=== PATIENT | male | born 1945 | race African-American/Black ===

== ENCOUNTER 2018-09-02 14:33 | Inpatient (IN) ==
[2018-09-02] MEDS ORDERED: ENOXAPARIN 100 MG/ML SYRINGE SUBCUT STA (15:08)
[2018-09-02] MEDS ORDERED: ALUM/MAG/SIMETH/LIDO VISC 1:1 30 ML BOTTLE PO STA (15:08)
[2018-09-02 15:14] LABS: Basophils % 0.1 % (0.0-0.8); Eosinophils % 0.1 % (0.00-10.9); Hematocrit 43.9 VOL% (42.0-52.0); Hemoglobin 14.4 GM/DL (14.0-18.0); Immature Granulocytes % 0.3 %; Immature Granulocytes Absolute 0.03 #; Lymphocytes # 0.7 10*3/uL (1.4-4.0); Mean Corpuscular HGB Conc 32.8 GM/DL (32-36); Mean Corpuscular Hemoglobin 29 PG (27-34); Mean Corpuscular Volume 88.9 FL (87-102); Mean Platelet Volume 10.5 FL (9.6-12.0); Monocytes # 1.1 10*3/uL (0.11-0.8); Monocytes % 11.2 % (1.7-12.7); Neutrophils % 81.3 % (38.7-73.9); Platelet Count 120 T/CUMM (130-400); Red Blood Count 4.94 MC/CUMM (3.8-5.5); Red Cell Distribution Width 13.3 % (9.3-17.3); White Blood Count 9.9 T/CUMM (4-12)
[2018-09-02 15:30] LABS: Albumin 3.9 G/DL (3.4-5.0); Bilirubin,Total 1.3 MG/DL (0.2-1.0); Calcium 9.1 MG/DL (8.5-10.1); Osmolality,Calculated 279.5 MOS/KG (273-304); Potassium 4.1 MMOL/L (3.5-5.1); Total Protein 6.7 G/DL (6.4-8.3)
[2018-09-02] MEDS ORDERED: ONDANSETRON 4 MG/2 ML VIAL IV PRN (16:57)
[2018-09-02] MEDS ORDERED: MAGNESIUM SULF RIDER 2 GM in PREMIX 1 EACH IV PRN (16:57)
[2018-09-02] MEDS ORDERED: POTASSIUM CHLORIDE 20 MEQ TABLET PO PRN (16:57)
[2018-09-02] MEDS ORDERED: ALBUTEROL/IPRATROPIUM 3 ML NEB RESP TX PRN (19:15)
[2018-09-02] MEDS: SODIUM CHLORIDE 0.45% 1,000 ML IV SCH (19:17)
[2018-09-02] MEDS ORDERED: ALUM/MAG/SIMETH/LIDO VISC 1:1 30 ML BOTTLE PO ONE (19:20)
[2018-09-02] MEDS: METOPROLOL TARTRATE 50 MG TABLET PO SCH (20:24)
[2018-09-02] MEDS: MORPHINE 4 MG/1 ML VIAL IV PRN (20:24)
[2018-09-03] MEDS: SODIUM CHLORIDE 0.45% 1,000 ML IV SCH ×2 (04:12→16:55)
[2018-09-03] MEDS: MOMETASONE/FORMOTEROL 100-5 INHALER 8.8 GM INH SCH ×3 (04:14→20:15)
[2018-09-03 05:11] LABS: Basophils % 0.2 % (0.0-0.8); Hematocrit 45.7 VOL% (42.0-52.0); Immature Granulocytes % 0.6 %; Immature Granulocytes Absolute 0.07 #; Lymphocytes # 0.7 10*3/uL (1.4-4.0); Lymphocytes % 5.3 % (21.2-54.2); Mean Corpuscular HGB Conc 32.8 GM/DL (32-36); Mean Corpuscular Hemoglobin 29 PG (27-34); Mean Corpuscular Volume 89.3 FL (87-102); Monocytes # 1.5 10*3/uL (0.11-0.8); Monocytes % 12.4 % (1.7-12.7); Neutrophils % 81.5 % (38.7-73.9); Platelet Count 127 T/CUMM (130-400); Red Blood Count 5.12 MC/CUMM (3.8-5.5); Red Cell Distribution Width 13.2 % (9.3-17.3); White Blood Count 12.3 T/CUMM (4-12)
[2018-09-03 05:37] LABS: Calcium 8.5 MG/DL (8.5-10.1); Osmolality,Calculated 282.5 MOS/KG (273-304); Potassium 4.4 MMOL/L (3.5-5.1); Risk Ratio 1.77; Thyroid Stimulating Hormone 0.167 uIU/ml (0.358-3.74); VLDL CHOLESTEROL 7.8 MG/DL
[2018-09-03 06:43] LABS: Apearance,Urine CLEAR (Clear); Bilirubin,Urine Negative (Negative); Blood, Urine Moderate mg/dL (Negative); Glucose,Urine (UA) Negative (Negative); Ketones,Urine 5 mg/dL (Negative); Mucus,Urine Occasional /LPF (Occasional); Nitrite,Urine Negative (Negative); Protein,Urine 30 MG/DL; RBC,Urine 21 /HPF (0-4); Urine Color Amber (Yellow); WBC,Urine 1 /HPF (0-6)
[2018-09-03] MEDS ORDERED: ENOXAPARIN 80 MG/0.8 ML SYRINGE SUBCUT SCH (07:00)
[2018-09-03] MEDS: MORPHINE 4 MG/1 ML VIAL IV PRN ×3 (07:31→20:16)
[2018-09-03] MEDS ORDERED: ASPIRIN EC 325 MG TABLET PO SCH (09:00)
[2018-09-03] MEDS ORDERED: PANTOPRAZOLE 40 MG TABLET PO SCH (09:00)
[2018-09-03] MEDS ORDERED: CLOPIDOGREL 75 MG TABLET PO SCH (09:00)
[2018-09-03 10:00] LABS: Albumin 3.3 G/DL (3.4-5.0); Bilirubin,Direct 0.36 MG/DL (0.0-0.20); Bilirubin,Total 1.4 MG/DL (0.2-1.0); Total Protein 6.9 G/DL (6.4-8.3)
[2018-09-03] MEDS: PANTOPRAZOLE 40 MG VIAL IV SCH (10:15)
[2018-09-03] MEDS: PIPERACILLIN/TAZOBACTAM 3,375 MG in SODIUM CHLORIDE 0.9% 100 ML IV SCH ×2 (10:18→18:07)
[2018-09-03] MEDS: LOSARTAN/HCTZ 50-12.5 MG TABLET PO SCH (10:34)
[2018-09-03] MEDS: CITALOPRAM 20 MG TABLET PO SCH (10:34)
[2018-09-03] MEDS: METOPROLOL TARTRATE 50 MG TABLET PO SCH ×2 (10:35→20:15)
[2018-09-03] MEDS: ENOXAPARIN 40 MG/0.4 ML SYRINGE SUBCUT SCH (15:55)
[2018-09-04] MEDS: MORPHINE 4 MG/1 ML VIAL IV PRN (02:28)
[2018-09-04] MEDS: PIPERACILLIN/TAZOBACTAM 3,375 MG in SODIUM CHLORIDE 0.9% 100 ML IV SCH ×3 (02:33→17:01)
[2018-09-04 04:54] LABS: Basophils % 0.1 % (0.0-0.8); Hematocrit 43.1 VOL% (42.0-52.0); Hemoglobin 14.2 GM/DL (14.0-18.0); Immature Granulocytes % 1.6 %; Immature Granulocytes Absolute 0.24 #; Lymphocytes # 0.6 10*3/uL (1.4-4.0); Lymphocytes % 3.8 % (21.2-54.2); Mean Corpuscular HGB Conc 32.9 GM/DL (32-36); Mean Corpuscular Hemoglobin 29 PG (27-34); Mean Corpuscular Volume 88.3 FL (87-102); Mean Platelet Volume 11.2 FL (9.6-12.0); Monocytes # 1.5 10*3/uL (0.11-0.8); Monocytes % 10.1 % (1.7-12.7); Neutrophils # 12.6 10*3/uL (1.4-7.4); Neutrophils % 84.4 % (38.7-73.9); Platelet Count 124 T/CUMM (130-400); Red Blood Count 4.88 MC/CUMM (3.8-5.5); Red Cell Distribution Width 13.6 % (9.3-17.3); White Blood Count 14.9 T/CUMM (4-12)
[2018-09-04 05:20] LABS: Calcium 8.5 MG/DL (8.5-10.1); Osmolality,Calculated 282.5 MOS/KG (273-304); Potassium 3.9 MMOL/L (3.5-5.1)
[2018-09-04] MEDS: SODIUM CHLORIDE 0.45% 1,000 ML IV SCH ×3 (05:44→21:38)
[2018-09-04 06:00] LABS: Anisocytosis 1+; Band Neutrophils 13 % (0-10); Lymphocytes 3 % (20-55); Platelet Estimate Adequate; Segmented Neutrophils 77 % (50-85); Target Cells Few; Total Cells Counted 100
[2018-09-04] MEDS ORDERED: BUPIVACAINE 0.5% 50 ML VIAL ONE (06:24)
[2018-09-04] MEDS ORDERED: PANTOPRAZOLE 40 MG VIAL IV SCH (09:00)
[2018-09-04] MEDS ORDERED: SEVOFLURANE 1 UNIT/15 MINUTE INH ONE (10:05)
[2018-09-04] MEDS ORDERED: PROPOFOL 200 MG/20 ML VIAL IV ONE (10:05)
[2018-09-04] MEDS ORDERED: LABETALOL 100 MG/20 ML VIAL IV ONE (10:06)
[2018-09-04] MEDS ORDERED: ONDANSETRON 4 MG/2 ML VIAL ONE (10:06)
[2018-09-04] MEDS ORDERED: fentaNYL 100 MCG/2 ML VIAL ONE (10:06)
[2018-09-04] MEDS ORDERED: GLYCOPYRROLATE 0.4 MG/2 ML VIAL ONE (10:06)
[2018-09-04] MEDS ORDERED: ACETAMINOPHEN 1,000 MG/100 ML VIAL IV ONE (10:06)
[2018-09-04] MEDS ORDERED: DEXAMETHASONE 4 MG/1 ML VIAL ONE (10:06)
[2018-09-04] MEDS ORDERED: METOPROLOL TARTRATE 5 MG/5 ML VIAL IV ONE (10:06)
[2018-09-04] MEDS ORDERED: PHENYLEPHRINE 1 MG/10 ML SYRINGE IV ONE (10:06)
[2018-09-04] MEDS ORDERED: ROCURONIUM 100 MG/10 ML VIAL IV ONE (10:07)
[2018-09-04] MEDS ORDERED: SUCCINYLCHOLINE 200 MG/10 ML VIAL ONE (10:07)
[2018-09-04] MEDS ORDERED: NEOSTIGMINE 10 MG/10 ML VIAL ONE (10:07)
[2018-09-04] MEDS ORDERED: LACTATED RINGERS 1,000 ML IV ONE (10:07)
[2018-09-04] MEDS: CITALOPRAM 20 MG TABLET PO SCH (10:11)
[2018-09-04] MEDS: METOPROLOL TARTRATE 50 MG TABLET PO SCH ×2 (10:11→21:19)
[2018-09-04] MEDS: PANTOPRAZOLE 40 MG VIAL IV SCH (10:12)
[2018-09-04] MEDS: LOSARTAN/HCTZ 50-12.5 MG TABLET PO SCH (10:12)
[2018-09-04] MEDS: MOMETASONE/FORMOTEROL 100-5 INHALER 8.8 GM INH SCH ×2 (10:12→21:19)
[2018-09-04] MEDS: ENOXAPARIN 40 MG/0.4 ML SYRINGE SUBCUT SCH (17:01)
[2018-09-05] MEDS: PIPERACILLIN/TAZOBACTAM 3,375 MG in SODIUM CHLORIDE 0.9% 100 ML IV SCH ×2 (01:18→09:33)
[2018-09-05 03:01] LABS: Basophils % 0.2 % (0.0-0.8); Hematocrit 36.3 VOL% (42.0-52.0); Hemoglobin 11.9 GM/DL (14.0-18.0); Immature Granulocytes % 0.5 %; Immature Granulocytes Absolute 0.05 #; Lymphocytes # 0.8 10*3/uL (1.4-4.0); Lymphocytes % 8.3 % (21.2-54.2); Mean Corpuscular HGB Conc 32.8 GM/DL (32-36); Mean Corpuscular Hemoglobin 29 PG (27-34); Mean Corpuscular Volume 89.4 FL (87-102); Mean Platelet Volume 10.4 FL (9.6-12.0); Monocytes % 10.4 % (1.7-12.7); Neutrophils # 7.7 10*3/uL (1.4-7.4); Neutrophils % 80.6 % (38.7-73.9); Platelet Count 117 T/CUMM (130-400); Red Blood Count 4.06 MC/CUMM (3.8-5.5); Red Cell Distribution Width 13.7 % (9.3-17.3); White Blood Count 9.5 T/CUMM (4-12)
[2018-09-05 03:23] LABS: Albumin 2.2 G/DL (3.4-5.0); Bilirubin,Total 1.4 MG/DL (0.2-1.0); Calcium 7.9 MG/DL (8.5-10.1); Osmolality,Calculated 283.5 MOS/KG (273-304); Potassium 3.9 MMOL/L (3.5-5.1); Total Protein 5.7 G/DL (6.4-8.3)
[2018-09-05] MEDS: PANTOPRAZOLE 40 MG VIAL IV SCH (09:36)
[2018-09-05] MEDS: CITALOPRAM 20 MG TABLET PO SCH (09:37)
[2018-09-05] MEDS: METOPROLOL TARTRATE 50 MG TABLET PO SCH (09:37)
[2018-09-05] MEDS: LOSARTAN/HCTZ 50-12.5 MG TABLET PO SCH (09:37)
[2018-09-05] MEDS: MOMETASONE/FORMOTEROL 100-5 INHALER 8.8 GM INH SCH (09:38)
[2018-09-05] MEDS: SODIUM CHLORIDE 0.45% 1,000 ML IV SCH (10:15)
[2018-09-05 15:55] VITALS: BP 132/68
[2018-09-05] MEDS: ENOXAPARIN 40 MG/0.4 ML SYRINGE SUBCUT SCH (16:42)
[2018-09-06] MEDS ORDERED: CLOPIDOGREL 75 MG TABLET PO SCH (09:00)
[2018-09-06] MEDS ORDERED: ASPIRIN CHEW 81 MG TABLET PO SCH (09:00)
== END 2018-09-05 16:13 | disposition home or self-care (01) | DRG 419 ==
LOC: EDBD → EDUNIT# → N.ED 14:33 → SUATTDRO 16:57 → N.EDINP 16:57 → N.TELEN 17:56
PROVIDERS: ADMIT Internal Medicine; ATTEND Internal Medicine
PROC: LAPCHOL (2018-09-04 07:36)